=== PATIENT | female | born 1975 | race Caucasian/White ===

== ENCOUNTER 2016-10-04 23:34 | Emergency (ER) | payer OTHER ==
[~2016-10-04] VITALS: Ht 165.1 cm; Wt 47.3 kg
--- NOTE | ~2016-10-04 | CR72 ---
[facility] A Service of [facility] RADIOLOGY TEXT RESULTS PATIENT: GRACE MEYERS LOCATION: [facility] : 75 UNIT #: [id number] AGE: [address]: Quang Carballo MD SEX: F ORDER DR: [id number] [facility] [address] [place], [place] [address] [id number] E MR#: [id number] Acc #: [id number] NAME: GRACE MEYERS : 1975 SEX: F STUDY DATE/TIME: 10/05/2016 00:57 UNIT: [facility] ROOM: STUDY DESCRIPTION: CR Chest Single View Portable Attending Physician: Quang Carballo M.D. Ordering Physician: Quang Carballo M.D. Primary Care Physician: Amandeep Dumas M.D. MEDICAL IMAGING REPORT This report is preliminary unless electronic signature is present EXAM Portable chest, 10/05 at 00:57 INDICATIONS Cough and mid chest pain for 3 days. FINDINGS AP portable chest is compared with 02/21/2012. Cardiac and mediastinal contours are normal. The lungs are emphysematous but clear. No pneumothorax. IMPRESSION Emphysema. No active disease. Dictated by... Amandeep Gonzalez Jr., M.D. THIS IS AN ELECTRONICALLY VERIFIED REPORT Amandeep Gonzalez Jr., M.D. at 10/05/2016 6:54 AM RICARDO/stuart TD: 10/05/2016 02:12 JOB #: [id number] MEDICAL IMAGING REPORT Page 1 of 1 COPY
--- NOTE | ~2016-10-04 | EKG ---
PATIENT: GRACE MEYERS UNIT #: [id number] Ventricular Rate: 97 BPM Atrial Rate: 97 BPM P-R Interval: 138 ms QRS Duration: 88 ms Q-T Interval: 338 ms QTC Calculation(Bezet): 429 ms P [place]: 72 degrees Calculated R [place]: 55 degrees Calculated T [place]: 73 degrees Diagnosis Line: Normal sinus rhythm Diagnosis Line: Possible Left atrial enlargement Diagnosis Line: Septal infarct , age undetermined Diagnosis Line: Abnormal ECG Diagnosis Line: When compared with ECG of 21-FEB-2012 17:49, Diagnosis Line: Vent. rate has increased BY 51 BPM Diagnosis Line: Septal infarct is now Present Diagnosis Line: T wave inversion less evident in Anterior leads Diagnosis Line: Confirmed by MIGNON JACKSON MD ([id number]) on Diagnosis Line: 10/05/2016 7:33:05 AM INTERPRETING MD: RENETTA LOPEZ
[~2016-10-04 23:34] MED LIST: DEPAKOTE PO; FLEXERIL10 MG PO; IBUPROFEN800 MG PO; KETOPROFEN PO; KLONOPIN1 MG PO; LEXAPRO PO; MOBIC PO; ULTRAM PO; VICODIN 5/500 T1 TAB PO; VOLTAREN75 MG PO; ZYPREXA10 MG PO
[2016-10-05 00:32] LABS: POC - CKMB <1.0 ng/mL (0.0-7.9); POC - TROPONIN <0.05 ng/mL (<=0.05)
[2016-10-05 00:52] LABS: BASOPHIL# 0.1 X10e3 (0-0.3); BASOPHIL% 0.4 % (0-2.5); EOSINOPHIL# 0.1 X10e3 (0-0.7); EOSINOPHIL% 0.3 % (0.0-7.0); HEMATOCRIT 41.7 % (35.0-45.0); HEMOGLOBIN 13.5 gm/dL (12.0-16.0); LYMPHOCYTE# 2.5 X10e3 (1.0-3.5); MEAN CORPUSCULAR HEMOGLOBIN 30.7 PG (28-34); MEAN CORPUSCULAR HGB CONC 32.3 g/dL (30-36); MEAN PLATELET VOLUME 8.9 FL (6.5-11.5); MONOCYTE# 0.9 X10e3 (0-1.0); MONOCYTE% 4.9 % (3.0-12.0); NEUTROPHIL# 15.7 X10e3 (1.5-7.1); NEUTROPHIL% 81.4 % (40-75); PLATELET COUNT 238 X10e3 (140-420); RED BLOOD COUNT 4.39 X10e (3.90-5.30); RED CELL DISTRIBUTION WIDTH 13.9 % (11.0-15.5); WHITE BLOOD COUNT 19.3 X10e3 (4.0-10.5)
[2016-10-05 00:53] LABS: DIFF IND YES
[2016-10-05 01:09] LABS: ANISOCYTOSIS SL; DIFFERENTIAL COMMENT ATYLYMPHS; PLATELET ESTIMATE NORMAL (NORMAL)
[2016-10-05 01:12] LABS: ALBUMIN SERUM 4.1 g/dL (3.5-5.0); BILIRUBIN,TOTAL 0.6 mg/dL (0.2-2.0); CALCIUM SERUM 8.9 mg/dL (8.4-10.2); CREATININE SERUM 0.5 mg/dL (0.6-1.4); GLOM FILT RATE Estimated 120.2 mL/min (>60); POTASSIUM 3.4 mmol/L (3.5-5.1); PROTEIN TOTAL SERUM 6.9 g/dL (6.0-8.3)
[2016-10-05 01:13] LABS: BILIRUBIN, DIRECT 0.1 mg/dL (0.0-0.2); BILIRUBIN,INDIRECT 0.5 mg/dL (0.0-0.9)
== END 2016-10-05 01:45 | disposition home or self-care (01) ==
LOC: CED 23:34
PROVIDERS: Emergency Medicine
DX: J44.1 Chronic obstructive pulmonary disease with (acute) exacerbation (principal); R09.1 Pleurisy; F32.9 Major depressive disorder, single episode, unspecified; F41.9 Anxiety disorder, unspecified; F17.200 Nicotine dependence, unspecified, uncomplicated; Z88.0 Allergy status to penicillin; Z88.1 Allergy status to other antibiotic agents; G40.909 Epilepsy, unspecified, not intractable, without status epilepticus
CPT/HCPCS: 36415; 71010; 80048; 80076; 82553; 84484; 85025; 85379; 93005; 96374; 99285; J1885